=== PATIENT | male | born 1985 | race Two or more races ===

== ENCOUNTER 2017-03-11 20:52 | Emergency (ER) | payer SELFPAY ==
[~2017-03-11] VITALS: Ht 152.4 cm; Wt 93.4 kg
[2017-03-11 20:54] VITALS: BP 157/91
== END 2017-03-11 22:39 | disposition home or self-care (01) ==
LOC: ED 22:20
DX: S90.511A Abrasion, right ankle, initial encounter (principal); S00.81XA Abrasion of other part of head, initial encounter; L03.115 Cellulitis of right lower limb; X58.XXXA Exposure to other specified factors, initial encounter; Y93.89 Activity, other specified; Y92.89 Other specified places as the place of occurrence of the external cause; Y99.8 Other external cause status
CPT/HCPCS: 99283